=== PATIENT | female | born 1980 | race American Indian/Alaskan Native ===

== ENCOUNTER 2016-05-15 21:09 | Emergency (ER) | payer MEDICAID ==
--- NOTE | 2016-05-15 21:53 | Emergency Department Report ---
Chief Complaint: Abdominal Pain Stated Complaint: ABD PAIN Time Seen by Provider: 05/15/16 21:44 - HPI History of Present Illness: Patient is a 36-year-old female who presents to ED complaining of right sided lower back pain 3 days and vaginal discharge 2 days. Patient states she fell down 8 steps about 3 days ago she patient states she slipped and fell on her back and hasn't having pain on the right side ever since then. Patient states pain has gotten progressively worse. 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 Patient denies fever/chills/nausea/vomiting/abdominal pain/vaginal bleeding/ shortness of breath/diarrhea/dysuria - ROS Review of Systems: As noted in HPI - Exam Vital Signs: Vital Signs 05/15/16 21:14 Temperature 98.1 F Pulse Rate 74 Blood Pressure 110/62 O2 Sat by Pulse 100 Oximetry Physical Exam: GENERAL: Alert and oriented x3, no apparent distress, Normal Gait, atraumatic. NECK: Supple. Non edematous, No carotid bruits. No lymphadenopathy or thyromegaly. LUNGS: Symetrical with respiration, No wheezing, no rales or crackles, CTAB. HEART: S1, S2 present, regular rate and rhythm without murmur, no rubs, no gallops. ABDOMEN: No organomegaly was noted,Positive bowel sounds, soft, and non- distended. . Nontender to palpation on all Quadrants, NO CVA tenderness. No C or L spine tenderness, tenderness to palpation of latisimmus dorsi mucle Right SKIN: Warm and dry, No lesions, No ulceration or induration present. MSE screening note: Focused history and physical exam performed. Due to findings the following was ordered: ED Medical Decision Making - Medical Decision Making Labs ordered. Patient awaiting to be sent by ED physician. ED Disposition for MSE Condition: Stable Instructions: Abdominal Pain (ED)
[2016-05-15 22:26] LABS: Bilirubin,Urine NEG (Negative); Blood,Urine NEG (Negative); Ketones,Urine TR mg/dL (Negative); Leukocyte Esterase,Urine NEG (Negative); Mucus,Urine FEW /HPF; Nitrite,Urine NEG (Negative); Protein,Urine <15 mg/dL mg/dL (Negative); Urobilinogen,Urine < 2.0 mg/dL (<2.0)
[2016-05-15] MEDS ORDERED: TYLENOL PO ONE (23:24)
[2016-05-16 00:03] LABS: Basophils % (Auto) 0.8 % (0.0-1.8); Eosinophils % (Auto) 2.4 % (0.0-4.3); Hematocrit 35.9 % (30.3-42.9); Hemoglobin 11.8 gm/dl (10.1-14.3); Mean Corpuscular HGB Conc 33 % (30-34); Mean Corpuscular Hemoglobin 32 pg (28-32); Mean Corpuscular Volume 97 fl (79-97); Platelet Count 205 K/mm3 (140-440); Red Blood Count 3.71 M/mm3 (3.65-5.03); Red Cell Distribution Width 13.7 % (13.2-15.2); White Blood Count 6.1 K/mm3 (4.5-11.0)
[2016-05-16 03:31] VITALS: BP 102/64
--- NOTE | 2016-05-16 21:43 | ED Elopement Review ---
ED Pt Elopement review - Results review Lab results: Laboratory Tests 05/15/16 05/15/16 05/15/16 23:17 23:17 Unknown WBC 6.1 RBC 3.71 Hgb 11.8 Hct 35.9 MCV 97 MCH 32 MCHC 33 RDW 13.7 Plt Count 205 Lymph % (Auto) 48.1 H [place] % (Auto) 9.4 H Eos % (Auto) 2.4 Baso % (Auto) 0.8 Lymph # 3.0 [place] # 0.6 Eos # 0.1 Baso # 0.0 Seg Neutrophils % 39.3 L Seg Neutrophils # 2.4 HCG, Quant < 2 Urine Color Yellow Urine Turbidity Clear Urine pH 6.0 Ur Specific [place] 1.027 Urine Protein <15 mg/dl Urine Glucose (UA) Neg Urine Ketones Tr Urine Blood Neg Urine Nitrite Neg Urine Bilirubin Neg Urine Urobilinogen < 2.0 Ur Leukocyte Esterase Neg Urine WBC (Auto) 1.0 Urine RBC (Auto) 3.0 U Epithel Cells (Auto) 2.0 Urine Mucus Few - Call Back decision Pt Call Back Decision: No action required
== END 2016-05-16 03:35 | disposition left against medical advice (07) ==
LOC: ED 21:09
DX: M54.5 Low back pain (principal); N93.9 Abnormal uterine and vaginal bleeding, unspecified; Z53.21 Procedure and treatment not carried out due to patient leaving prior to being seen by health care provider
CPT/HCPCS: 36415; 81001; 84702; 85025